=== PATIENT | female | born 1995 | race Caucasian/White ===

== ENCOUNTER 2018-05-12 00:15 | Emergency (ER) | payer OTHER ==
[~2018-05-12] VITALS: Ht 170.2 cm; Wt 77.1 kg
[2018-05-12 00:35] VITALS: BP 125/90
--- NOTE | 2018-05-12 00:38 | NUR ---
TO LOBBY A/W BED, ENRIQUE TERRELL NOTED
--- NOTE | 2018-05-12 01:18 | NUR ---
Patient ambulated to bed 7 with family. RN evaluating patient at bedside.
--- NOTE | 2018-05-12 01:20 | NUR ---
PATIENT PRESENTS TO ED WITH FLANK PAIN AND URINARY BURNING X2 DAYS. PT DENIES N/V/D; SKIN IS PINK/WARM/DRY; AAOX4 WITH EVEN AND STEADY GAIT; LUNGS CLEAR BL; HR EVEN AND REGULAR; PT DENIES ANY FEVER, CP, SOB, OR COUGH AT THIS TIME; PATIENT STATES PAIN OF 7/10 AT THIS TIME; VSS; PATIENT POSITIONED FOR COMFORT; HOB ELEVATED; BEDRAILS UP X1; BED DOWN. ER MD MADE AWARE OF PT STATUS.
[2018-05-12 02:08] VITALS: BP 125/90
--- NOTE | 2018-05-12 02:08 | NUR ---
Patient discharged with v/s stable. Written and verbal after care instructions given and explained. Patient alert, oriented and verbalized understanding of instructions. Ambulatory with steady gait. All questions addressed prior to discharge. ID band removed. Patient advised to follow up with PMD. Rx of MACROBID, PYRIDIUM given. Patient educated on indication of medication including possible reaction and side effects. Opportunity to ask questions provided and answered.
== END 2018-05-12 02:07 | disposition home or self-care (01) ==
LOC: MED 00:15
DX: N39.0 Urinary tract infection, site not specified (principal)
CPT/HCPCS: 81002; 81025; 99283

== ENCOUNTER 2018-11-06 22:23 | Emergency (ER) | payer OTHER ==
[~2018-11-06] VITALS: Ht 170.2 cm; Wt 86.2 kg
[2018-11-06 22:31] VITALS: BP 126/78
[2018-11-06] MEDS ORDERED: ONDANSETRON 4 MG ODT PO ONE (23:10)
[2018-11-07 00:05] VITALS: BP 118/67
== END 2018-11-07 00:05 | disposition home or self-care (01) ==
LOC: MED 22:23
DX: R11.10 Vomiting, unspecified (principal)
CPT/HCPCS: 81002; 81025; 99283; Q0162